=== PATIENT | female | born 1960 | race Caucasian/White ===

== ENCOUNTER 2016-10-13 07:23 | Day surgery (SDC) | payer BC ==
[~2016-10-13] VITALS: Ht 170.2 cm; Wt 54.4 kg
== END 2016-10-13 11:31 | disposition home or self-care (01) ==
LOC: RAD.S 07:23 → EDSTATUS 09:00 → RAD.S 10:00
PROC: 07BD3ZX Excision of Aortic Lymphatic, Percutaneous Approach, Diagnostic (ICD-10-PCS; principal; 2016-10-13)
DX: C78.6 Secondary malignant neoplasm of retroperitoneum and peritoneum (principal); C08.9 Malignant neoplasm of major salivary gland, unspecified; Z79.899 Other long term (current) drug therapy

== ENCOUNTER → 2016-10-29 | Outpatient (CLI) | payer BC ==
--- NOTE | ~2016-10-29 | ECH ---
Transthoracic Echocardiography Report (TTE) Demographics Patient Name GABRIELE FOWLER Date of Study 10/29/2016 Patient Number [id number] Visit Number [id number] Date of 1960 Room Number Accession Number [id number] Gender Female Age 56 year(s) Referring Richard Hewitt MD Hadoop Administrator Physician Physician Interpreting Jimbo Shay MD Table Games Manager Physician Supervising Ordering Physician /EDUARD Nurse Stress Boat Rental Clerk Conclusions Summary Limited exam for ejection fraction. Technically adequate exam. Doppler not performed. The estimated left ventricular ejection fraction is 65%. Normal appearing valves. Trivial circumferential pericardial effusion. Large Pleural effusion present. Procedure Type of Study TTE procedure:Echo Limited SF. Procedure Date Date: 10/29/2016 Start: 09:04 AM Technical Quality: Adequate visualization Indications:Pre-chemotherapy. Appropriate Use Criteria: 9 Height: 66 inches Weight: 120 pounds BSA: 1.61 m Rhythm: NSR HR: 86 bpm BP: 112/70 mmHg M-Mode/2D Measurements LV Diastolic Dimension: 3.77 cm LV Systolic Dimension: 2.7 cm LV Septum Diastolic: 0.81 cm LV PW Diastolic: 0.81 cm AO Root Dimension: 2.69 cm LA Dimension: 3.04 cm RV Diastolic Dimension: 3.31 cm LA volume: 41.79 ml Post Pericard Effusion: 0.3 cm LA volume index: 26 ml/m RV Base: 2.8 cm RV Mid: 1.9 cm TAPSE: 2.1 cm Doppler Measurements RA Area: 8.74 cm Findings Left Ventricle Normal left ventricle size and function. Right Ventricle Normal right ventricle structure and function. Left Atrium Normal left atrial size. Right Atrium Normal right atrial size. Mitral Valve Normal mitral valve structure and function. Aortic Valve The aortic valve was not well imaged. Tricuspid Valve Normal tricuspid valve structure and function. Pulmonic Valve Normal pulmonic valve structure and function. Pericardial Effusion Trivial circumferential pericardial effusion. Miscellaneous Visualized portions of the aortic root and ascending aorta appear normal in size. Pleural Effusion Large Pleural effusion present. Signature
== END | disposition home or self-care (01) ==
LOC: CARD 08:39
DX: C07 Malignant neoplasm of parotid gland (principal); R59.0 Localized enlarged lymph nodes; J90 Pleural effusion, not elsewhere classified; R19.00 Intra-abdominal and pelvic swelling, mass and lump, unspecified site; Z98.890 Other specified postprocedural states

== ENCOUNTER 2016-11-01 10:14 | Emergency (ER) | payer BC ==
--- NOTE | 2016-11-03 14:18 | ER ---
ADMIT: 11/01/2016 RM/LOC: ER [facility] MR#: [id number] [address] [id number] GABRIELE FOWLRE [address] [place] [address] Emergency Room Report SEX: F AGE: 56 : 1960 DATE: 11/01/2016 HISTORY OF PRESENT ILLNESS: The patient is a 56-year-old female, who presents to the emergency room with increasing shortness of breath and back pain. An EKG was completed and showed normal sinus rhythm. This was over-read by Dr. Kothari. She had a chest x-ray, which showed a moderate pleural effusion on the left side. Her oxygen saturations remained in the low to mid 90s. Her back pain was treated successfully with hydrocodone 5/325, one of them. We had a difficult time getting somebody from Interventional Radiology to accept her to do an emergent pleurocentesis. The patient reported that she was feeling better and prefer to return home. She does have an appointment with her oncologist in [place] on Thursday. At which time, they are going to do a CT of her abdomen and chest. Dr. Kothari was involved in this case and was consulted throughout and is in agreement with plan of care. She was instructed that if the dyspnea became worse, she needed to return to the emergency room immediately. She was told she can take the hydrocodone at home to help with the back pain. Elizabeth Lr APRN / Gaudencio Kothari MD / vinny JOB #: [id number] CC: Gaudencio Kothari MD, Attending Physician UNKNOWN, Family Physician
== END 2016-11-01 13:20 | disposition home or self-care (01) ==
LOC: ER 10:14
DX: J90 Pleural effusion, not elsewhere classified (principal); Z90.710 Acquired absence of both cervix and uterus; Z90.89 Acquired absence of other organs; Z79.899 Other long term (current) drug therapy

== ENCOUNTER → 2016-11-11 | Outpatient (CLI) | payer BC | END | disposition home or self-care (01) | LOC: THER.SSS 15:14 | DX: C08.9 Malignant neoplasm of major salivary gland, unspecified (principal) ==

== ENCOUNTER → 2016-11-12 | Outpatient (CLI) | payer BC | END | disposition home or self-care (01) | LOC: RAD.S 08:30 | DX: R14.0 Abdominal distension (gaseous) (principal); C08.9 Malignant neoplasm of major salivary gland, unspecified; R18.8 Other ascites; J90 Pleural effusion, not elsewhere classified; N13.30 Unspecified hydronephrosis ==

== ENCOUNTER 2016-11-20 23:54 | Inpatient (IN) | payer BC | END 2016-11-23 05:57 | disposition E | DRG 682 | DX: N17.0 Acute kidney failure with tubular necrosis (principal); E43 Unspecified severe protein-calorie malnutrition; Z51.5 Encounter for palliative care; J96.90 Respiratory failure, unspecified, unspecified whether with hypoxia or hypercapnia; J91.0 Malignant pleural effusion; C78.00 Secondary malignant neoplasm of unspecified lung; I95.9 Hypotension, unspecified; E87.1 Hypo-osmolality and hyponatremia; C79.89 Secondary malignant neoplasm of other specified sites; E87.5 Hyperkalemia; K59.09 Other constipation; I45.10 Unspecified right bundle-branch block; E03.9 Hypothyroidism, unspecified; I10 Essential (primary) hypertension; Z85.89 Personal history of malignant neoplasm of other organs and systems; Z93.1 Gastrostomy status; Z66 Do not resuscitate ==